=== PATIENT | male | born 1945 | race Caucasian/White ===

== ENCOUNTER 2023-05-15 12:03 | Outpatient (CLI) | payer MEDICARE, SELFPAY ==
--- NOTE | 2023-05-15 14:30 | NEURO_ITS ---
Impression: # Complains of numbness of left hand. # Severe left Carpal Tunnel Syndrome. # Generally slower nerve conduction velocities. # Needle/EMG exam not requested. Nerve Conduction Studies Anti Sensory Summary Table Stim Site NR Peak (ms) P-T Amp (?V) Site1 Site2 Delta-P (ms) Dist (cm) Chucky (m/s) Left Median Anti Sensory (2-3nd Digit) Wrist 11.0 15.6 Wrist 2-3nd Digit 11.0 14.0 13 Wrist 10.3 12.4 Wrist 2-3nd Digit 11.0 14.0 13 Left Radial Anti Sensory (Base 1st Digit) Wrist 2.2 23.8 Wrist Base 1st Digit 2.2 0.0 Left Ulnar Anti Sensory (5th Digit) Wrist 2.9 39.4 Wrist 5th Digit 2.9 14.0 48 Motor Summary Table Stim Site NR Onset (ms) O-P Amp (mV) Site1 Site2 Delta-0 (ms) Dist (cm) Chucky (m/s) Left Median Motor (Abd Poll Brev) Wrist 9.0 1.0 Elbow Wrist 7.0 30.0 43 Elbow 16.0 1.2 Left Ulnar Motor (Abd Dig Minimi) Wrist 2.6 7.5 A Elbow Wrist 6.3 31.0 49 A Elbow 8.9 5.3 B Elbow Wrist 4.3 20.0 47 B Elbow 6.9 1.7 F Wave Studies NR F-Lat (ms) L-R F-Lat (ms) Left Median (Mrkrs) (Abd Poll Brev) 43.59 Left Ulnar (Mrkrs) (Abd Dig Min) 35.12 MTDD
== END 2023-05-15 12:04 | disposition home or self-care (01) ==
PROVIDERS: PCP Family Medicine; Visit Provider Plastic Surgery
DX: G56.02 Carpal tunnel syndrome, left upper limb (principal)
CPT/HCPCS: 95909

== ENCOUNTER 2023-06-12 01:56 | Day surgery (SDC) | payer MEDICARE, SELFPAY ==
[2023-05-29 16:07] VITALS: BMI 32.8
--- NOTE | 2023-05-29 16:19 | PC.NURSE ---
Report to the Outpatient Waiting Room, entrance under the green pavilion located off [facility], at time __6:00AM on date _06/12/23 . Planned Procedure Time: __7:30AM . Time changes happen often and if your time is changed the preop area will call you the afternoon before. - You and your visitor will be asked to self-screen and do not enter if you have any COVID symptoms. - A mask is optional within the hospital at this time. Patients may have clear liquids (water, carbonated beverages, clear teas, apple juice) until 3 hours prior to surgery with a maximum of 20 ounces. - No food from midnight until time of surgery Take the following medications with a SIP of water the morning of surgery: ____NONE DO NOT STOP ANY OF YOUR OTHER PRESCRIPTION MEDICATIONS PRIOR TO SURGERY ?EXCEPT THE FOLLOWING Medications to discontinue per physician NONE Date to take last dose Please no make-up, nail welsh, hairspray, perfume, deodorant, or body powder the day of surgery. No jewelry (including any body piercings) or valuables the day of surgery, leave them at home. Please take a shower or bath the night before, or the morning of, surgery with an antibacterial soap. Wear comfortable, loose fitting clothing. Children are encouraged to wear pajamas. - Jewelry must be removed prior to entering the operating room. Rings and piercings that are not removed may be cut off. - The hospital will not accept responsibility for valuables. - Please leave all valuables, including medications, at home the day of surgery. If you are going home after surgery, a licensed tanker truck driver must drive you home. - NO public transportation without another adult if you receive anesthesia. - We recommend that an adult stay with you for 24 hours following discharge. - We also recommend that you do not drive, make important decision, drink alcoholic beverages, or take any drugs that were not prescribed by your health care provider for at least 24 hours after your discharge time. Follow any additional instructions given to you from your surgeon. If you or anyone in your household have experienced Covid symptoms in the past week, please notify your surgeon or the nurse liaison at the phone number below for possible testing. Telephone instructions given to __PATIENT and asked if any additional questions and then verbalized understanding. Patient advised to call surgeon office or pre surgery nurse liaison [phone] if any additional questions.
[2023-06-12] MEDS: LACTATED RINGERS 1,000 ML 30 ML IV CONT ×2 (06:12→08:47)
[2023-06-12 06:17] VITALS: BP 112/70; PULSE 67; RESP 18; TEMP 36.2; O2SAT 97
--- NOTE | 2023-06-12 06:52 | P.PNAN_ITS ---
Anes - Initial Pre Proc Eval Procedure: Operation Date: 06/12/23 07:30 Proposed Procedures p Left Open Carpal Tunnel Release, Left Ulnar Neuroplasty at the Elbow - Aurelio West MD Date/Time: 06/12/23 06:52 Surgeon: Aurelio West MD Pre Op Diagnosis: Lt Carpal Tunnel Syn, Lt Cubital Syn Patient Data Age: 77 Gender: M Height: 1.78 m Weight: 102.2 kg Last Vital Signs Temp 36.2 C L 06/12/23 06:17 Pulse 67 06/12/23 06:17 Resp 18 06/12/23 06:17 BP 112/70 06/12/23 06:17 Pulse Ox 97 06/12/23 06:17 O2 Del Method Room Air 06/12/23 06:17 Allergies Allergy/AdvReac Type Severity Reaction Status Date / Time penicillin G Allergy Unknown Verified 05/29/23 16:03 Home Medications Medication Instructions Recorded Confirmed Type allopurinol 300 mg tablet 300 mg PO DAILY 05/29/23 06/12/23 History loratadine 10 mg tablet (Claritin) 10 mg PO DAILY 05/29/23 06/12/23 History meloxicam 15 mg tablet 15 mg PO DAILY 05/29/23 06/12/23 History rosuvastatin 10 mg tablet 5 mg PO DAILY 05/29/23 06/12/23 History Patient hx anesthesia problems: none Family hx anesthesia problems: none Results Review: All pre-operative results and documents have been reviewed as part of the pre- operative evaluation. [facility] Past Medical History Medical History (Updated 06/12/23 @ 06:54 by Garrett Figueroa DO) Gout Hyperlipidemia Osteoarthritis Prostate cancer Social History Social History (Updated 06/12/23 @ 06:58 by Garrett Figueroa DO) Smoking status: Never smoker Alcohol intake: current Drinks per week: 28 Alcohol use details: 4/day Substance use: never Living arrangements: alone Spiritual care concerns: No Anes - Eval Final PreProcedure Day of Procedure 06/12/23 06:52 Patient weight: obese Heart: regular rate and rhythm Lungs: clear to auscultation Airway: Mallampati scale class 1 Neurological: alert and oriented Last oral intake: >/= 8 hours ASA classification: III Emergent: no Anesthetic plan: proceed Anesthesia type and monitoring: general GIVS and standard monitoring Results Review: All pre-operative results and documents have been reviewed as part of the pre- operative evaluation. Informed Consent: The patient's anesthetic plan and its attendant risks and benefits were discussed with the patient/family/POA. Questions were solicited and answers provided to the satisfaction of the patient/family/POA.
--- NOTE | 2023-06-12 07:12 | WPDHPUPDATE1 ---
History and Physical Update Update Date/Time: 06/12/23 07:12 History and Physical has been reviewed, including an updated exam of the patient. There are NO changes in the patient's condition. Risks, benefits, and alternatives have been discussed and questions answered. Patient agrees to proceed with procedure.
[2023-06-12 08:46] VITALS: BP 101/66; PULSE 66; RESP 16; O2SAT 98
--- NOTE | 2023-06-12 08:55 | P.OP_ITS ---
Procedure Note - Detailed Date of Procedure 06/12/23 Pre-op Diagnosis Lt Carpal Tunnel Syn, Lt Cubital Syn Post-op Diagnosis Same Procedure Performed Left open carpal tunnel release and left ulnar neuroplasty at the elbow Surgeon Aurelio West MD Anesthesia MAC Description of Procedure The sites of the carpal tunnel and cubital tunnel were marked on the patient with his consent in the holding area. He was rolled into the operating room placed supine on the operating table. He was given IV sedation the left upper extremity was prepped and draped in usual fashion. The time-out was held and confirmed. The 2 sites on the extremity were remarked for incision and each locally infiltrated with 1% lidocaine with epinephrine. The extremity was exsanguinated and tourniquet inflated to 250 mmHg. The carpal tunnel was done 1st with the incision as marked and blunt dissection revealed the palmar aponeurosis. This and the transverse retinaculum were incised with a 15. Blade opening the canal. Under 3 point retraction the structures were divided distally and proximally for complete release. There was no unusual anatomy noted. The skin was closed with interrupted 4-0 nylon suture. Attention was turned to the left elbow. The elbow was flexed and supported on towels. The incision was made as marked. Subcutaneous tissue was divided. Several visible cutaneous nerves were identified and dissected and held out of the way during the procedure. The ulnar nerve was identified proximal to the m edial epicondyle where it lay fairly superficial. Was carefully dissected distally and proximally. There were no constrictions proximally that I could determine. Distally the nerve dove under the White ligament which seemed to be quite tight. The nerve was flattened in this area and dissection was done very carefully. The dissection extended under the muscle fascia and distally until a small finger could be passed alongside the nerve in both directions. The tourniquet was released and bleeding points were electrocoagulated. A small arterial running transversely over the ulnar nerve and we applied pressure on that until it stopped bleeding. A small piece of Surgicel was applied over that. The wound was closed intradermal 3-0 Monocryl at the cross hatching brewster. The skin was then closed with a running intradermal 3-0 Monocryl. The usual bandage were applied to both sites. The patient was discharged in stable condition he has a prescription for hydrocodone 5/325 7. Estimated Blood Loss 3 Tourniquet Time 21 Drains No Packing No Pathology None sent Complications No immediate complications Condition Stable Disposition Same day
--- NOTE | 2023-06-12 09:00 | SUR.PHASEII ---
0900 report to Kianna SULLIVAN
[2023-06-12 09:15] VITALS: BP 101/52; PULSE 60; RESP 16
[2023-06-12 09:45] VITALS: BP 110/66; PULSE 58; RESP 16
[2023-06-12 10:00] VITALS: BP 118/71; PULSE 65; RESP 16
== END 2023-06-12 10:15 | disposition home or self-care (01) ==
PROVIDERS: PCP Family Medicine; Visit Provider Plastic Surgery
PROC: (CPT 64721; principal; 2023-06-12 07:30)
DX: G56.02 Carpal tunnel syndrome, left upper limb (principal); G56.22 Lesion of ulnar nerve, left upper limb; E78.5 Hyperlipidemia, unspecified; M10.9 Gout, unspecified; Z85.46 Personal history of malignant neoplasm of prostate; E66.9 Obesity, unspecified; Z68.32 Body mass index [BMI] 32.0-32.9, adult
CPT/HCPCS: 64721; 64718; A9270; J1100; J2371; J2405; J2704; J3010; J7120